=== PATIENT | male | born 1960 | race Caucasian/White ===

== ENCOUNTER 2018-10-04 10:57 | Day surgery (SDC) | payer MEDICARE, MEDICAID ==
[~2018-10-04] VITALS: Ht 157.5 cm; Wt 56.7 kg
[~2018-10-04 10:57] MED LIST: CETI10CH PO; CIPROFLOXACIN 400 MG in APPROPRIATE DILUENT 1 EA IV ONE; GEMF600T5 PO; LR 1,000 ML IV ONE; MIRA3350 PO; MULT1TAB36 PO; NYST10CR TOP; OMEG10002 PO; OYST1TAB8 PO; SENN8.6T17 PO; [UNRECOGNIZED DRUG - CODE] PO
[2018-10-04] MEDS ORDERED: MIDAZOLAM 10MG/5ML SYRUP As Ordered ONE (12:40)
[2018-10-04] MEDS ORDERED: MIDAZOLAM 10MG/5ML SYRUP PO ONE (12:45)
[2018-10-04] MEDS ORDERED: fentaNYL 100 MCG/2 ML INJECTION (J3010) As Ordered ONE (12:54)
[2018-10-04] MEDS ORDERED: ONDANSETRON 4MG/2ML VIAL (J2405) As Ordered ONE (12:54)
[2018-10-04] MEDS ORDERED: PROPOFOL 200 MG/20 ML VIAL As Ordered ONE (12:54)
[2018-10-04] MEDS ORDERED: LIDOCAINE 2% INJ 100 MG/5 ML SDV (FOR ANES.) As Ordered ONE (12:54)
[2018-10-04] MEDS ORDERED: MIDAZOLAM INJ 2 MG/2 ML VIAL (J2250) As Ordered ONE (12:55)
[2018-10-04] MEDS ORDERED: BUPIVACAINE HCL 0.25% 30 ML VIAL As Ordered ONE (13:52)
[2018-10-04] MEDS ORDERED: LIDOCAINE 1% SDV INJ 30 ML VIAL As Ordered ONE (13:52)
--- NOTE | 2018-10-04 14:59 | ROOPDOC ---
[facility] Report Of Operation Report of Operation DATE OF PROCEDURE: 10/04/18 PREPROCEDURE DIAGNOSES: Elevated Prostate Specific Antigen (PSA) POSTPROCEDURE DIAGNOSES: Elevated Prostate Specific Antigen (PSA) PROCEDURE: Transrectal Ultrasound-guided Prostate Biopsy SURGEON: Moira Harris MD ACCOUNT SERVICES REPRESENTATIVE: None ANESTHESIA: General OPERATIVE INDICATIONS: This is a 58 year old male with an elevated PSA of 4.5, here today for a prostate biopsy. He has mental retardation and because of this the decision was made to do the procedure on general anesthesia. DESCRIPTION OF PROCEDURE: The patient was brought to the operating room and general anesthesia was induced. The patient was then placed in the left lateral position. A transrectal ultrasound probe was placed into the rectum. A prostatic block was created with injection of 50% mixture of 1/4% Marcaine and 1% lidocaine below the left and right seminal vesicle each of the 5 mL. Subsequently the ultrasonologist measured the dimensions of the prostate and the volume was 28mL Then 12 core biopsies of the prostate were obtained using a disposable biopsy gun, 6 each from the right and 6 from the left, 2 from the base, 2 from the mid zone and 2 from the apex. There were no complications and the patient tolerated the procedure well and walked to the waiting room in stable condition. ESTIMATED BLOOD LOSS: Approximately 5 mL COMPLICATIONS: None SPECIMENS: Prostate biopsies PLAN: We will discuss biopsy results with the patient's healthcare proxy. MOIRA HARRIS MD Oct 04, 2018 14:59
[2018-10-04] MEDS ORDERED: ONDANSETRON 4MG/2ML VIAL (J2405) IV PRN (15:15)
[2018-10-04] MEDS ORDERED: fentaNYL 100 MCG/2 ML INJECTION (J3010) IV PRN (15:15)
[2018-10-04] MEDS ORDERED: LR 1,000 ML IV SCH (15:15)
--- NOTE | 2018-10-04 15:43 | REP ---
Prostate sonography: History: Elevated PSA. Sonographic findings: Trans rectal prostate sonography demonstrates unremarkable seminal vesicles. Prostate gland is heterogeneously enlarged with calcifications and cystic changes noted. Glandular dimensions are measured at 4.6 x 2.1 x 5.6 cm with a calculated glandular volume of 28 ml. Transrectal sonographic guidance is provided to Dr. Schulz who performed trans rectal ultrasound guided needle biopsy procedure . Electronically Signed by Sha Wise MD 10/04/2018 03:35 P
[2018-10-04 15:50] VITALS: BP 129/70
== END 2018-10-04 16:37 | disposition home or self-care (01) ==
LOC: M SDC 10:57
PROVIDERS: ATTEND Urology
DX: R97.20 Elevated prostate specific antigen [PSA] (principal); N40.0 Benign prostatic hyperplasia without lower urinary tract symptoms; K21.9 Gastro-esophageal reflux disease without esophagitis; E78.5 Hyperlipidemia, unspecified; F73 Profound intellectual disabilities; Z88.0 Allergy status to penicillin; Z79.899 Other long term (current) drug therapy
CPT/HCPCS: 55700; 76872; 76998; G0416; J0744; J2250; J2405; J3010